=== PATIENT | female | born 1965 | race Caucasian/White ===

== ENCOUNTER → 2016-10-10 | Outpatient (CLI) | payer BC ==
--- NOTE | 2016-10-10 08:49 | PCVCIMAG ---
APPROVED REPORT Study performed: 10/10/2016 07:50:13 EXAM: Comprehensive 2D, Doppler, and color-flow Echocardiogram Indications Dyspnea Elevated BP Edema 2D Dimensions LVEF(%): 52.90 (>50%) IVSd: 9.84 (7-11mm) LVDd: 39.35 mm PWd: 10.40 (7-11mm) LVDs: 28.81 (25-40mm) Left Atrium: 40.07 (27-40mm) Aortic Root: 26.63 mm LV Single Plane 4CH: 57.57 % LV Single Plane 2CH: 65.59 %Laureano's LVEF: 52.90 % Biplane EF: 61.4 % Volumes Left Atrial Volume (Systole) Single Plane 4CH: 61.53 mLSingle Plane 2CH: 45.54 mL Aortic Valve AoV Peak Otoniel.: 1.72 m/s AO Peak Gr.: 11.83 mmHgLVOT Max P.40 mmHg LVOT Max V: 0.92 m/s Mitral Valve E/A Ratio: 1.30 MV Decel. Time: 291.81 ms MV E Max Otoniel.: 0.92 m/s MV A Otoniel.: 0.71 m/s IVRT: 86.51 ms Pulmonary Valve PV Peak Otoniel.: 1.18 m/sPV Peak Gr.: 5.52 mmHg Pulmonary Vein P Vein S: 0.25 m/sP Vein A: 0.32 m/s P Vein D: 0.50 m/sP Vein A Dur.: 148.8 msec Tricuspid Valve TR Peak Otoniel.: 2.29 m/s TR Peak Gr.: 21.03 mmHg Left Ventricle The left ventricle is normal size. There is normal LV segmental wall motion. There is normal left ventricular wall thickness. Left ventricular systolic function is normal. LVEF is 65%. Grade II - pseudonormal filling dynamics. Right Ventricle The right ventricle is normal size. The right ventricular systolic function is normal. Atria The left atrium size is normal. The right atrium size is normal. Aortic Valve The aortic valve is mildly sclerotic, trileaflet No aortic regurgitation is present. There is no aortic valvular stenosis. Mitral Valve The mitral valve is normal in structure. Trace mitral regurgitation. No evidence of mitral valve stenosis. Tricuspid Valve The tricuspid valve is normal in structure. Trace tricuspid regurgitation with PAP of 28 mmHg. Pulmonic Valve The pulmonary valve is normal in structure. Mild pulmonic regurgitation. Great Vessels The aortic root is normal in size. IVC is normal in size and collapses with >50% inspiration Pericardium There is no pericardial effusion. <Conclusion> Left ventricular systolic function is normal. There is normal LV segmental wall motion. LVEF is 65%. Grade II - pseudonormal filling dynamics. The aortic valve is mildly sclerotic, trileaflet. No aortic regurgitation or stenosis The mitral valve is normal in structure. Trace mitral regurgitation. Pulmonary artery pressure of 28mmHg There is no pericardial effusion.
== END | disposition home or self-care (01) ==
LOC: PCVCIMAG 08:06
PROVIDERS: ATTEND Internal Medicine
DX: I08.1 Rheumatic disorders of both mitral and tricuspid valves (principal); I10 Essential (primary) hypertension
CPT/HCPCS: 93306